=== PATIENT | male | born 1995 | race African-American/Black ===

== ENCOUNTER 2023-08-06 09:50 | Outpatient (REF) | payer OTHER, SELFPAY ==
--- NOTE | ~2023-08-06 | US_ITS ---
EXAMINATION: US SOFT TISSUE NECK CLINICAL INFORMATION: Right parotid gland swelling. COMPARISON: None available. TECHNIQUE: Ultrasound of the neck soft tissues is performed with high- frequency linton-scale imaging and color Doppler. FINDINGS: Targeted sonographic evaluation in the area of the swelling within the right parotid region and adjacent right upper cervical region demonstrating a few slightly prominent lymph nodes, some of which demonstrate equivocal cortical thickening but overall well-defined margins, reniform shape and preserved fatty thiago. For reference measurements are as follow: 1. 0.9 x 0.5 x 0.9 cm. 2. 1 x 1 x 0.6 cm. 3. 1.2 x 0.5 x 0.5 cm. 4. 1.3 x 0.6 x 0.6 cm. US/US soft tiss head and/or neck IMPRESSION: A few slightly prominent lymph nodes in the right parotid region and adjacent right upper cervical region, some of which demonstrate equivocal cortical thickening. These are most likely reactive in nature, however, a follow-up examination in 3-6 months is recommended.
== END 2023-08-06 09:51 | disposition home or self-care (01) ==
LOC: HO.UMASIMG 09:50
PROVIDERS: Visit Provider Internal Medicine
DX: K11.3 Abscess of salivary gland (principal)
CPT/HCPCS: 76536

== ENCOUNTER 2024-04-12 06:34 | Outpatient (REF) | payer OTHER, SELFPAY ==
--- NOTE | ~2024-04-12 | US_ITS ---
EXAMINATION: US SOFT TISSUES AT RIGHT JAW CLINICAL INFORMATION: Lump right jaw and cheek. Patient states has had acne and ingrown facial hair lumps in the past. COMPARISON: None available. TECHNIQUE: Linear transducer linton-scale and color Doppler examination with attention to the region of the thyroid. FINDINGS: Targeted ultrasound images were obtained by the senior cyber intelligence analyst of the area of concern as indicated by the patient in the right cheek/jaw. There is a 0.4 x 0.2 x 0.6 cm hypoechoic lesion in the superficial soft tissues of the area indicated by the patient along the inferior aspect of the jaw on the right. No internal vascularity is demonstrated, although there is vascularity on the periphery. Radiologist was not in attendance. Images were later provided for interpretation. US/US soft tiss head and/or neck IMPRESSION: A 0.6 cm complex cyst versus solid lesion in the area of concern indicated by the patient in the inferior right jaw. This study was presented today April 12, 2024 for interpretation. Stat results provided at this time as requested by referring provider. Electronically signed by: Vilma Overton MD 04/12/2024 01:16 PM EDT
== END 2024-04-12 06:35 | disposition home or self-care (01) ==
LOC: HO.UMASIMG 06:34
PROVIDERS: Visit Provider Internal Medicine
DX: R22.0 Localized swelling, mass and lump, head (principal)
CPT/HCPCS: 76536